=== PATIENT | male | born 1995 | race Caucasian/White ===

== ENCOUNTER 2021-01-19 08:01 | Emergency (ER) | payer OTHER ==
[2021-01-19 08:07] VITALS: BP 147/96; PULSE 100; TEMP 98.7; BMI 24.6
== END 2021-01-19 09:00 | disposition home or self-care (01) ==
LOC: FER 08:01
DX: J02.8 Acute pharyngitis due to other specified organisms (principal)
CPT/HCPCS: 87070; 87880; 99283-25

== ENCOUNTER 2021-01-20 09:28 | Emergency (ER) | payer OTHER ==
[2021-01-20 09:42] VITALS: BMI 24.6
[2021-01-20] MEDS ORDERED: DEXAMETHASONE SOD PHOSPHATE 10 MG/1 ML VIAL IVPUSH ONE (09:43)
[2021-01-20] MEDS ORDERED: ACETAMINOPHEN 1000 MG/100 ML VIAL (NON FORMULARY) IVPB ONE (09:43)
[2021-01-20] MEDS ORDERED: CLINDAMYCIN 600MG PREMIX IVPB 600 MG/50 ML BAG IVPB ONE (09:43)
[2021-01-20] MEDS ORDERED: ACETAMINOPHEN INJECTION 100 ML IVPB ONE (09:48)
[2021-01-20] MEDS ORDERED: CLINDAMYCIN PHOSPHATE 600 MG/4 ML VIAL ONE (09:49)
[2021-01-20] MEDS ORDERED: DEXAMETHASONE SOD PHOSPHATE 10 MG/1 ML VIAL ONE (09:49)
[2021-01-20 10:16] LABS: EOS % 0.3 % (0-4.5); RDW 11.9 % (11.9-15.9)
[2021-01-20 10:22] LABS: BASO % 4.8 % (0-2.0); HEMATOCRIT 46.1 % (35.4-49); HEMOGLOBIN 15.9 GM/dl (11.7-16.9); LYMPH % 9.4 % (8-40); MCH 31.5 pg (25.7-33.7); MCHC 34.5 g/dl (32.0-35.9); MEAN CELL VOLUME 91.5 fl (80-96); MONO % 6.7 % (3.8-10.2); NEUT % 78.8 % (42.8-82.8); PLATELET COUNT 248 K/MM3 (134-434); RBC 5.04 M/mm3 (4.00-5.60); WHITE BLOOD COUNT 14.4 K/mm3 (4.0-10.8)
[2021-01-20 10:41] LABS: ALBUMIN 4.6 g/dl (3.4-5.0); BILIRUBIN,TOTAL 2.1 mg/dl (0.2-1); CALCIUM 9.7 mg/dl (8.5-10); CREATININE 1.3 mg/dl (0.55-1.3); POTASSIUM 3.9 mmol/L (3.5-5.1); TOT PROT 7.9 g/dl (6.4-8.2)
[2021-01-20] MEDS ORDERED: SODIUM CHLORIDE 0.9% 500 ML INFUS.BAG IV ONE (10:43)
[2021-01-20 12:33] VITALS: BP 127/78; PULSE 86; TEMP 98.2
[2021-01-20] MEDS ORDERED: BENZOCAINE 20% 57 GM BOTTLE TP ONE (13:21)
== END 2021-01-20 14:10 | disposition home or self-care (01) ==
LOC: FER 09:28
PROC: 0C9PXZZ Drainage of Tonsils, External Approach (ICD-10-PCS; principal; 2021-01-20)
PROC: 3E03329 Introduction of Other Anti-infective into Peripheral Vein, Percutaneous Approach (ICD-10-PCS; 2021-01-20)
PROC: 3E033GC Introduction of Other Therapeutic Substance into Peripheral Vein, Percutaneous Approach (ICD-10-PCS; 2021-01-20)
DX: J36 Peritonsillar abscess (principal)
CPT/HCPCS: 36415; 70491-TC; 80053; 85025; 86308; 99285-25; C9803; J0131; J1100; Q9967; U0003